=== PATIENT | male | born 2000 | race African-American/Black ===

== ENCOUNTER 2019-07-08 03:22 | Emergency (ER) | payer OTHER ==
[~2019-07-08] VITALS: Ht 172.7 cm; Wt 77.7 kg
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
[2019-07-08] MEDS ORDERED: AUGM875T28 PO (09:33)
[2019-07-08] MEDS ORDERED: IBUP1TAB6 PO (09:34)
[2019-07-08 09:58] VITALS: BP 128/71
== END 2019-07-08 09:59 | disposition home or self-care (01) ==
LOC: M ED 03:22
DX: S02.2XXA Fracture of nasal bones, initial encounter for closed fracture (principal); S00.83XA Contusion of other part of head, initial encounter; Y04.8XXA Assault by other bodily force, initial encounter; Y92.89 Other specified places as the place of occurrence of the external cause

== ENCOUNTER 2019-08-28 10:28 | Day surgery (SDC) | payer OTHER ==
[~2019-08-28] VITALS: Ht 175.3 cm; Wt 76.1 kg
[~2019-08-28 10:28] MED LIST: AUGM875T28 PO; IBUP1TAB6 PO; LIDOCAINE 1% MDV 20ML VIAL SQ PRN; LIDOCAINE W/EPINEPHRINE 1% 20ML VIAL As Ordered ONE; LR 1,000 ML IV ONE; METHYLENE BLUE 0.5% (5MG/ML) 10 ML AMP (PROVAYBLUE)(Q9968 PER 1MG) As Ordered ONE; OXYMETAZOLINE NASAL SPRAY (AFRIN) As Ordered ONE
[2019-08-28] MEDS ORDERED: DOXY-350 PO (11:59)
[2019-08-28] MEDS ORDERED: PERCOCET PO (11:59)
[2019-08-28] MEDS ORDERED: MIDAZOLAM INJ 2 MG/2 ML VIAL (J2250) As Ordered ONE (14:14)
[2019-08-28] MEDS ORDERED: fentaNYL 250 MCG/5 ML INJECTION (J3010) As Ordered ONE (14:14)
[2019-08-28] MEDS ORDERED: LIDOCAINE 2% INJ 100 MG/5 ML SDV (FOR ANES.) As Ordered ONE (14:14)
[2019-08-28] MEDS ORDERED: PROPOFOL 200 MG/20 ML VIAL As Ordered ONE (14:14)
[2019-08-28] MEDS ORDERED: ROCURONIUM BROMIDE 50 MG/5 ML VIAL As Ordered ONE (14:14)
[2019-08-28] MEDS ORDERED: dexameTHASONE 4 MG/ML 1ML VIAL (J1100) As Ordered ONE (16:07)
[2019-08-28] MEDS ORDERED: ACETAMINOPHEN 1000MG 100ML IV BTL (OFIRMEV) (J0131 PER 10MG) As Ordered ONE (16:07)
[2019-08-28] MEDS ORDERED: ONDANSETRON 4MG/2ML VIAL (J2405) As Ordered ONE (16:10)
[2019-08-28] MEDS ORDERED: SUGAMMADEX SODIUM 500 MG/5 ML VIAL (BRIDION) As Ordered ONE (16:11)
[2019-08-28] MEDS ORDERED: ONDANSETRON 4MG/2ML VIAL (J2405) IV PRN (17:15)
[2019-08-28] MEDS ORDERED: METOCLOPRAMIDE INJ 10MG/2ML VIAL (J2765) IV PRN (17:15)
[2019-08-28] MEDS ORDERED: LR 1,000 ML IV SCH (17:15)
[2019-08-28] MEDS ORDERED: oxyCODONE 5MG TAB PO PRN (17:15)
[2019-08-28] MEDS ORDERED: PERCOCET 5MG/325MG TAB PO PRN (17:15)
[2019-08-28] MEDS ORDERED: IBUPROFEN 800 MG TAB PO PRN (17:15)
[2019-08-28] MEDS ORDERED: fentaNYL 100 MCG/2 ML INJECTION (J3010) IV PRN (17:15)
[2019-08-28 18:00] VITALS: BP 149/80
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
== END 2019-08-28 18:15 | disposition home or self-care (01) ==
LOC: M SDC 10:28
PROVIDERS: ATTEND Specialist
DX: S02.2XXA Fracture of nasal bones, initial encounter for closed fracture (principal); Y04.8XXA Assault by other bodily force, initial encounter; F17.210 Nicotine dependence, cigarettes, uncomplicated; Y93.9 Activity, unspecified; Y92.9 Unspecified place or not applicable; Y99.9 Unspecified external cause status
CPT/HCPCS: 21320; 30130; 30520; 88300; J0131; J1100; J2250; J2405; J3010; Q9968

== ENCOUNTER 2020-08-19 15:53 | Emergency (ER) | payer OTHER ==
[~2020-08-19] VITALS: Ht 175.3 cm; Wt 79.2 kg
[~2020-08-19 15:53] MED LIST changes: +DOXY-350 PO; -LIDOCAINE 1% MDV 20ML VIAL SQ PRN; -LIDOCAINE W/EPINEPHRINE 1% 20ML VIAL As Ordered ONE; -LR 1,000 ML IV ONE; -METHYLENE BLUE 0.5% (5MG/ML) 10 ML AMP (PROVAYBLUE)(Q9968 PER 1MG) As Ordered ONE; -OXYMETAZOLINE NASAL SPRAY (AFRIN) As Ordered ONE; +PERCOCET PO
[2020-08-19 17:44] LABS: BASO # 0.1 10^3/uL (0.0-0.2); BASO % 0.6 % (0.0-1.0); EOS # 0.3 10^3/uL (0.0-0.5); EOS % 3.6 % (0.0-3.0); HEMATOCRIT 45.9 % (42.0-52.0); HEMOGLOBIN 15.2 g/dl (13.5-17.5); LYMPH # 2.9 10^3/uL (1.5-5.0); LYMPH % 35.4 % (24.0-44.0); MEAN CORPUSCULAR HEMOGLOBIN 29.5 pg (27.0-33.0); MEAN CORPUSCULAR HGB CONC 33.1 g/dl (32.0-36.5); MEAN CORPUSCULAR VOLUME 89.1 fl (80.0-96.0); MONO # 0.6 10^3/uL (0.0-0.8); MONO % 7.3 % (0.0-5.0); NEUTROPHILS # 4.4 10^3/uL (1.5-8.5); NEUTROPHILS % 52.7 % (36.0-66.0); PLATELET COUNT, AUTOMATED 311 10^3/uL (150-450); RED BLOOD COUNT 5.15 10^6/uL (4.30-6.10); WHITE BLOOD COUNT 8.3 10^3/uL (4.0-10.0)
[2020-08-19 18:13] LABS: ALBUMIN 4.3 GM/DL (3.2-5.2); ALT/SGPT 27 U/L (12-78); BILIRUBIN,DIRECT 0.1 MG/DL (0.0-0.2); BILIRUBIN,TOTAL 0.3 MG/DL (0.2-1.0); BLOOD UREA NITROGEN 21 MG/DL (7-18); CALCIUM LEVEL 9.2 MG/DL (8.5-10.1); CARBON DIOXIDE LEVEL 29 MEQ/L (21-32); CHLORIDE LEVEL 105 MEQ/L (98-107); GLOMERULAR FILTRATION RATE > 60.0 (>60); GLUCOSE, FASTING 91 MG/DL (70-100); SODIUM LEVEL 140 MEQ/L (136-145); TOTAL PROTEIN 7.3 GM/DL (6.4-8.2)
--- NOTE | 2020-08-19 18:22 | REPVR ---
PROCEDURE INFORMATION: Exam: US Scrotum Exam date and time: 08/19/2020 6:14 PM Age: 20 years old Clinical indication: Other: Tingling in testicles; Additional info: Tingling in testicles/pain in penis TECHNIQUE: Imaging protocol: Real-time ultrasound of the scrotum and contents with color Doppler and image documentation. COMPARISON: No relevant prior studies available. FINDINGS: Right testicle measures 2.8 by 4.7 x 2.1 cm in size. Right testicle appears homogeneous with no focal mass. Normal Doppler flow is present within the right testicle. Left testicle measures 2.5 by 4.6 x 2.0 cm in size. Left testicle appears homogeneous with no focal mass. Normal Doppler flow is present within the left testicle. Right and left epididymis are symmetric and have normal Doppler flow. Physiologic fluid volume within the scrotal sac. No bowel-containing hernia sac within the scrotum. IMPRESSION: Unremarkable scrotal ultrasound. Electronically signed by: Richard Hernandez On 08/19/2020 18:22:39 PM
[2020-08-19 18:24] LABS: HEPATITIS B SURFACE ANTIBODY POSITIVE (POSITIVE)
[2020-08-19 18:34] LABS: HEPATITIS B SURFACE ANTIGEN NEGATIVE (NEGATIVE)
[2020-08-19 19:23] LABS: CHLAMYDIA DNA AMPLIFICATION NEGATIVE (NEGATIVE); GC DNA AMPLIFICATION NEGATIVE (NEGATIVE)
[2020-08-19 20:03] VITALS: BP 138/68
== END 2020-08-19 20:04 | disposition home or self-care (01) ==
LOC: M ED 15:53
DX: N48.89 Other specified disorders of penis (principal); Z88.0 Allergy status to penicillin